=== PATIENT | male | born 2000 ===

== ENCOUNTER 2024-06-14 05:47 | Emergency (ER) | payer OTHER, SELFPAY ==
[2024-06-14 05:51] VITALS: BP 142/87; PULSE 68; RESP 22; TEMP 36.6; O2SAT 98; BMI 21.5
--- NOTE | 2024-06-14 06:01 | ED_ITS ---
HPI - Abdominal Pain General Time Seen by Provider: 06:02 Date Seen: 06/14/24 Chief Complaint: Abdominal Pain Stated Complaint: Stomach issues Time Seen by Provider: 06/14/24 06:01 Source: patient Mode of arrival: ambulatory Limitations: no limitations History of Present Illness HPI narrative: 24-year-old male who comes in today with abrupt onset left lower quadrant pain started about 45 minutes prior to arrival via nausea vomiting. Did have some blood in the urine. No diarrhea constipation, did not take any medication for this. Related Data Home Medications ?Medication ?Instructions ?Recorded ?Confirmed No Known Home Medications 06/14/24 06/14/24 Allergies Allergy/AdvReac Type Severity Reaction Status Date / Time Penicillins Allergy Verified 06/14/24 05:54 PFSH PFSH Social History Non-prescribed substance use: denies use Exam Narrative: Exam Narrative: General: Well-developed and well-nourished, appears uncomfortable Head: Atraumatic and normocephalic Eyes: Pupils are equal reactive, extraocular motions intact, conjunctiva clear ENT: External nose and ears are normal, posterior pharynx without erythema or exudate Neck: No midline cervical tenderness, full spontaneous range of motion the neck, trachea midline, no adenopathy Heart: Regular rate and rhythm no murmurs or thrills Lungs: Clear to auscultation bilaterally without wheezes or crackles Abdomen: Soft, mild left lower quadrant tenderness, mild left CVA tenderness Musculoskeletal: No tenderness, deformity, or edema Neurologic: Awake, alert, and oriented x3, no gross focal neurologic deficits, cranial nerves intact as tested Psych: Mood and affect are appropriate Skin: No rashes Const: Vital Signs, click to edit/add: Vital Signs - 24 hr 06/14/24 05:51 Temperature 97.8 F Pulse Rate [Pulse Oximeter] 68 Respiratory Rate 22 Blood Pressure [Ri ght Upper Arm] 142/87 H Pulse Oximetry 98 Oxygen Delivery Me thod Room Air Course Course ED Course: Reviewed prior clinic visit from December 2022 which was evaluation at the [facility] department right forearm injury and right wrist tendinitis, treated conservatively with immobilization, ibuprofen. Patient presents today with left lower quadrant pain radiating to the groin starting just prior to arrival. Hematuria as well. On exam here appears quite uncomfortable, finally stable, mild CVA tenderness to percussion, left lower quadrant tenderness. Symptoms are most consistent consent own, consider also testicular torsion although patient does not have any testicular pain, obstruction possible less likely. Toradol and Zofran ordered for symptom management, labs and CT scan are performed. Reevaluation(s) Time of Reevaluation #1: 06:27 Reevaluation #1: Labs independently interpreted morning me with normal CBC, normal basic panel. CT scan independently interpreted by me demonstrates 3-4 mm distal ureteral stone with minimal hydronephrosis Time of Reevaluation #2: 06:57 Reevaluation #2: Patient rechecked, appears comfortable and stable for discharge. We discussed etiology kidney stones and preventive measures, questions answered. Vital Signs Vital signs: Initial Vital Signs Temperature 97.8 F 06/14/24 05:51 Temperature Source Temporal Artery Scan 06/14/24 05:51 Pulse Rate 68 06/14/24 05:51 Respiratory Rate 22 06/14/24 05:51 Blood Pressure 142/87 H 06/14/24 05:51 Blood Pressure Mean 105 06/14/24 05:51 Blood Pressure Position Sitting 06/14/24 05:51 Pulse Oximetry 98 06/14/24 05:51 Oxygen Delivery Method Room Air 06/14/24 05:51 Vital Signs Temperature 97.8 F 06/14/24 05:51 Pulse Rate 68 06/14/24 05:51 Respiratory Rate 22 06/14/24 05:51 Blood Pressure 142/87 H 06/14/24 05:51 Pulse Oximetry 98 06/14/24 05:51 Oxygen Delivery Method Room Air 06/14/24 05:51 Temperature 97.8 F 06/14/24 05:51 Pulse Rate 68 06/14/24 05:51 Respiratory Rate 22 06/14/24 05:51 Blood Pressure 142/87 H 06/14/24 05:51 Pulse Oximetry 98 06/14/24 05:51 Oxygen Delivery Method Room Air 06/14/24 05:51 Medications Administered Medications: Discontinued Medications Generic Name Dose Route Start Last Admin Trade Name Freq PRN Reason Stop Dose Admin Ketorolac Tromethamine 15 mg 06/14/24 06:07 06/14/24 06:13 Ketorolac 15 Mg/Ml Inj IVP 06/14/24 06:08 15 mg ONCE ONE Administration Ondansetron HCl 4 mg 06/14/24 06:07 06/14/24 06:13 Ondansetron 2 Mg/Ml Inj IVP 06/14/24 06:08 4 mg ONCE ONE Administration MDM - Abdominal Pain Lab Data Labs: Lab Results 06/14/24 06/14/24 Range/Units 05:58 06:20 WBC 7.78 (4.50-11.00) K/uL RBC 5.34 (4.30-5.90) m/uL Hgb 16.4 (13.5-17.5) gm/dL Hct 44.7 (37.0-53.0) % MCV 84 (80-100) fL MCH 31 (26-34) pg MCHC 37 H (32-36) gm/dL RDW Coeff of Tommy 13.0 (11.5-15.5) % Plt Count 276 (140-440) K/uL Neut % (Auto) 41.0 L (42.0-72.0) % Lymph % (Auto) 48.8 H (20-44) % [place] % (Auto) 7.6 (0.0-11.0) % Eos % (Auto) 1.5 (0.0-7.0) % Baso % (Auto) 0.3 (0.0-3.0) % Neut # (Auto) 3.20 (1.7-7.0) K/uL Lymph # (Auto) 3.80 H (0.90-2.90) K/uL [place] # (Auto) 0.60 (0.00-0.90) K/UL Eos # (Auto) 0.12 (0.00-0.50) K/uL Baso # (Auto) 0.02 (0.00-0.30) K/uL Abs Immat Gran (auto) 0.06 (0.00-0.30) K/uL Imm/Tot Granulo (auto) 0.8 % Sodium 140 (135-149) mmol/L Potassium 4.0 (3.6-5.1) mmol/L Chloride 103 (96-114) mmol/L Carbon Dioxide 25 (20-32) mmol/L Anion Gap 12 (7-15) mEq/L BUN 18 (5-24) mg/dL Creatinine 1.2 (0.5-1.5) mg/dL Estimated Creat Clear 90.56 Estimated GFR 86 ml/min Glucose 119 H (60-115) mg/dL Calcium 9.5 (8.4-10.6) mg/dL Urine Color Brown A (Yellow) Urine Appearance Cloudy A (Clear) Urine pH 5.5 (5.0-8.5) Ur Specific [place] >= 1.030 (1.000-1.030) Urine Protein 2+ A (Negative) Urine Glucose (UA) Negative (Negative) Urine Ketones Negative (Negative) Urine Blood 3+ A (Negative) Urine Nitrite Negative (Negative) Urine Bilirubin 1+ A (Negative) Urine Urobilinogen 0.2 (0.2-1.0) Ur Leukocyte Esterase Negative (Negative) Urine RBC 50-100 A (0-2) Urine WBC 0-2 (0-5) Ur Squamous Epith Cells Few (None-Few) Calcium Oxalate Crystal Few A (None) Urine Bacteria None (None) Urine Mucus Moderate A (None) Urine Yeast Moderate A (None) Discharge Plan Discharge Clinical Impression: Left ureteral stone Patient Disposition: Home, Self-Care Condition: Stable Instructions: Ureteral Stones (ED) Additional Instructions: Strain urine. If you catch the stone, take it to your clinic to have them analyze it. Follow-up with primary care Tylenol and ibuprofen alternating every 3 hours for baseline pain management. Oxycodone as needed for more severe pain. If your pain is not controlled medications at home, return to the emergency department. If you are able to go to [facility], or [facility], they have urologists that can move your stone if needed. Activity Level: Activity as Tolerated Discharge Diet: Regular Prescriptions: No Action No Known Home Medications Follow Up/Referrals: Provider,Not a Local [Primary Care Provider] - Stand Alone Forms: [employer] Info Instructions
--- NOTE | 2024-06-14 06:08 | CRLHL7_ITS ---
For Patients: As a result of the Century Cures Act, medical imaging exams and procedure reports are released immediately into your electronic medical record. You may view this report before your referring provider. If you have questions, please contact your health care provider. INDICATION: Left lower quadrant abdominal pain COMPARISON: None TECHNIQUE: CT examination of the abdomen and pelvis was performed without intravenous contrast. Thin section axial images were obtained from the lung bases through the pubic symphysis. Oral contrast was not administered. Please note that all CT scans at this facility use dose modulation, iterative reconstruction, and/or weight-based dosing when appropriate to reduce radiation dose to as low as reasonably achievable. FINDINGS: LUNG BASES: The lung bases as visualized appear normal.The heart size is normal at the lung bases. LIVER/BILIARY SYSTEM:The liver is normal in size and configuration given the lack of intravenous contrast. There is no visible focal mass and there is no intra- or extra hepatic biliary ductal dilatation.The gall bladder appears normal. ADRENALS: Normal non-contrast appearance KIDNEYS, URETERS and BLADDER:Tiny intrarenal calculi bilaterally. Mild left hydronephrosis and left hydroureter due to a 3 millimeter calculus at the left ureterovesical junction. SPLEEN:Normal non-contrast appearance. PANCREAS: Normal non-contrast appearance. RETROPERITONEUM and MESENTERY: There is no mass, adenopathy or aortic aneurysm. GASTROINTESTINAL SYSTEM: There is no evidence of diverticulitis, colitis, mechanical obstruction, or appendicitis. The small bowel as visualized appears normal. PELVIS: No mass, adenopathy or free fluid. OSSEOUS STRUCTURES and ABDOMINAL WALL: There is an age-appropriate appearance of the osseous structures.No significant abdominal wall defect. OTHER: No free fluid or free air. IMPRESSION: Mild left hydronephrosis and left hydroureter due to a 3 millimeter calcified calculus at the left ureterovesical junction. Tiny intrarenal calculi bilaterally. Please note that all CT scans at this facility use dose modulation, iterative reconstruction, and/or weight-based dosing when appropriate to reduce radiation dose to as low as reasonably achievable. Dictated by Tor Brewster MD @ 06/14/2024 6:28:43 AM (Electronically Signed)
[2024-06-14] MEDS: KETOROLAC 15 MG/ML inj IVP (06:13)
[2024-06-14] MEDS: ONDANSETRON 2 MG/ML inj 4 MG IVP (06:13)
[2024-06-14 06:16] LABS: Basophils Absolute Auto 0.02 K/uL (0.00-0.30); Basophils Percent Auto 0.3 % (0.0-3.0); Eosinophils Absolute Auto 0.12 K/uL (0.00-0.50); Eosinophils Percent Auto 1.5 % (0.0-7.0); Hematocrit 44.7 % (37.0-53.0); Hemoglobin* 16.4 gm/dL (13.5-17.5); Immature Granulocytes Abs Auto 0.06 K/uL (0.00-0.30); Immature Granulocytes Pct Auto 0.8 %; Lymphocytes Percent Auto 48.8 % (20-44); Mean Corpuscular HGB Conc 37 gm/dL (32-36); Mean Corpuscular Hemoglobin 31 pg (26-34); Mean Corpuscular Volume 84 fL (80-100); Monocytes Percent Auto 7.6 % (0.0-11.0); Platelet Count* 276 K/uL (140-440); Red Blood Count 5.34 m/uL (4.30-5.90); White Blood Count* 7.78 K/uL (4.50-11.00)
[2024-06-14 06:19] LABS: Slide Review Reflex No
[2024-06-14 06:21] LABS: Chloride* 103 mmol/L (96-114)
[2024-06-14 06:22] LABS: Sodium* 140 mmol/L (135-149)
[2024-06-14 06:25] LABS: Anion Gap 12 mEq/L (7-15); Blood Urea Nitrogen* 18 mg/dL (5-24); Calcium* 9.5 mg/dL (8.4-10.6); Carbon Dioxide* 25 mmol/L (20-32); Creatinine* 1.2 mg/dL (0.5-1.5); Est. Creatinine Clearance* 90.56; Estimated Glomerular Filt Rate 86 ml/min; Glucose* 119 mg/dL (60-115)
[2024-06-14 06:36] LABS: Appearance Urine Cloudy (Clear); Bilirubin Urine 1+ (Negative); Blood Urine 3+ (Negative); Color Urine Brown (Yellow); Glucose Urine Negative (Negative); Ketones Urine Negative (Negative); Leukocyte Esterase Urine Negative (Negative); Nitrite Urine Negative (Negative); Protein Urine 2+ (Negative); Specific Gravity Urine >= 1.030 (1.000-1.030); Urobilinogen Urine 0.2 (0.2-1.0); pH Urine 5.5 (5.0-8.5)
[2024-06-14 06:48] LABS: Calcium Oxalate Crystals Urine Few; RBC Urine 50-100 (0-2); Squamous Epithelial Cell Urine Few (None-Few); WBC Urine 0-2 (0-5)
[2024-06-14 06:49] LABS: Mucus Urine Moderate
--- OUTSIDE RECORDS SUMMARY | 2024-06-14 06:54 | XMS_ITS | Continuity of Care Document ---
Author Organization [facility] Address [address] [place] [address] Phone Care Team Providers Care Pharmacy Aide Name Role Phone Livier Hutton MD Unavailable Unavailable Allergies, Adverse Reactions, Alerts Substance Reaction Status Criticality Penicillins Active No Information Procedures Procedure Date RADEX WRST COMPL MINIMUM 3 VIEWS 2019 RADEX WRST COMPL MINIMUM 3 VIEWS 2019 OFFICE/OUTPATIENT VISIT NEW Advance Directives Directive Yes / No Effective Date File Name Other Directive No N/A N/A WARNING:The information contained in this section is historical and is provided for information only and does not constitute a legal document or any assurance that the information is still accurate. Please verify the information with the nino of the legal document before using it for clinical purposes. Encounters Encounter Description Practice Location Reason(s) For Visit Diagnoses Date Provider Providers Copied on Encounter OFFICE/OUTPAT IENT VISIT NEW [facility] , [address], [place], [address], tel:[phone] [facility] Mirtha Right wrist painLeft wrist painGanglio n, left wristDe Quervain's disease (radial styloid tenosynovit is) Brennen Maier. [address], [place], [place], [id number]. tel:[phone] Referring Provider: [place] Qu[place], [address], [place], [address] . tel:[phone] Family History Family Member Type Diagnosis Age At Onset Mother Problem Alive and well Payers Payer name Insurance type Covered democrat ID Authoriza tion(s) UHC Choice/Choice Plus E2 [id number] Social History Type Description Quantity Date Captured Comments Alcohol Use Details No Caffeine Use Details Unknown Tobacco Use Status Current non-smoker 20 Smoking Status Never smoker Non-Smoking Tobacco Use Details : No Details Available : No Details Available Sex Male Vital Signs Date / Time: Height Weight BMI Pulse Rate Blood Pressure Temperature Respiratory Rate Body Surface Area Head Circumference Head Circ. Percentile Wt./Jourdan. Percentile BMI percentile Pulse Ox Inhaled Ox 12:35 PM 70.00 in 72.575 kg (160.00 lbs) 22.9 6 kg/m eter (2) Chief Complaint And Reason For Visit No Information Reason For Referral Reason For Referral No Information Plan Of Treatment Date Type Action Status Referral Ordered: RADEX WRST COMPL MINIMUM 3 VIEWS LT ordered Referral Ordered: RADEX WRST COMPL MINIMUM 3 VIEWS RT ordered History Of Present Illness Encounter Date Complaint History Of Prese nt Illness No Information Functional Status Date Functional Assessmen t Pain Score 6/10 Instructions Date Instruction Additional Infor mation No Information Assessments Type Assessment Date assessment Right wrist pain assessment Left wrist pain assessment Ganglion, left wrist assessment De Quervain's disease (radial st yloid tenosynovitis) Patient Care Teams Name Effective Dates (start - stop) Status Members No Information
--- OUTSIDE RECORDS SUMMARY | 2024-06-14 06:54 | XMS_ITS | Clinical Summary ---
Author Organization [facility] Address [address] [facility] [place] [address] Care Team Providers Care Sign Language Interpreter Name Role Phone Mane Henry MD Primary Care Provider [phone] Allergies Active Allergy Reactions Criticality Noted Date Comments Penicillins Other (See Comments) 11/15/2015 Medications No known medications Active Problems Problem Noted Date Diagnosed Date History of concussion 08/25/2020 Overview (08/25/2020): 2011: fall on ice. Recovery within 1 month 2015: head to glass (check). Recovery within 3 weeks. No other concussion or suspected concussion No chronic concussive symptoms. Immunizations Immunization Administration Dates Next Due (ADACEL/BOOSTRIX)(10 YR UP) TDAP VACCINE, 0.5ML, IM 07/30/2020 (HAVRIX/VAQTA)(12 MO-18 YRS) HEPATITIS A VACCINE 0.5 ML PED/ADOL 2 DOSE, IM 06/30/2011 (SPIKEVAX) (12 YRS UP PRIMAR Y SERIES) COVID-19 VACCINE - MRNA-1273(PF) 100 MCG/0.5 ML IM SUSP 08/15/2020 Family History Relation Name Status Comments Father Alive Mother Alive Social History Tobacco Use Types Packs/Day Years Used Date Smoking Tobacco: Never Smokeless Tobacco: Never Alcohol Use Standard Drinks/Week Comments Yes 0 (1 standard drink = 0.6 oz pur e alcohol) Sex and Gender Information Value Date Recorded Sex Assigned at Not on file Legal Sex Male 9:35 PM CDT Gender Identity Not on file Sexual Orientation Not on file Last Filed Vital Signs Vital Sign Reading Time Taken Comments Blood Pressure 120/80 08/25/2020 11:04 AM CDT Pulse 85 08/25/2020 11:04 AM CDT Temperature - - Respiratory Rate - - Oxygen Saturation 98% 08/25/2020 11:04 AM CDT Inhaled Oxygen Concentration - - Weight 72.6 kg (160 lb) 08/25/2020 11:04 AM CDT Height 172.7 cm (5' 8) 08/25/2020 11:04 AM CDT Body Mass Index 24.33 08/25/2020 11:04 AM CDT Plan of Treatment Health Maintenance Due Date Last Done Comments HPV VACCINES (1 - Male 3-dose series) 2014 HEPATITIS B VACCINES (1 of 3 - 19+ 3-dose series) 02/07 INFLUENZA VACCINE (#1) 2023 COVID-19 Vaccine (2 - 2023- season) 10/09/202310/2020 Preventative Visit- Commercial 02/08/2024 08/25/2020 DTAP/TDAP/TD VACCINES (2 - Td or Tdap) 07/30/2030 Insurance Care Teams Sign Language Interpreter Relationship Specialty Start Date End Date Mane Henry MD [address] [place] [id number] PCP - General Family Practice 08/25/20
--- OUTSIDE RECORDS SUMMARY | 2024-06-14 06:54 | XMS_ITS | Clinical Summary ---
Author Organization [facility] Address [address] [place] [address] Care Team Providers Care Credit Adjuster Name Role Phone Unavailable Primary Care Provider Unavailabl e Source Comments [facility],non-owned Affiliates and Associated Physician Practices is amultiple site organization consisting of ambulatory clinics and hospital sitesin [place], [place], [place] and [place]. This disclosure is being madepursuant to the Care Everywhere program and may not contain all information available regarding this patient. Last updated 17.[facility] Allergies Active Allergy Reactions Criticality Noted Date Comments Penicillins 11/15/2015 Medications * Be aware that medications may not be up to date on this document. Alwaysverify current medications with the patient. ibuprofen (MOTRIN) 800 MG tablet Take 1 (one) tablet by mouth every 6 hours as needed for Pain 30 tablet 07/30/2020 Active Active Problems No known active problems Immunizations Immunization Administration Dates Next Due TDAP (7yrs+) 07/30/2020 Social History Tobacco Use Types Packs/Day Years Used Date Smoking Tobacco: Never Smokeless Tobacco: Never Alcohol Use Standard Drinks/Week Comments Not Asked 0 (1 standard drink = 0.6 oz pur e alcohol) Sex and Gender Information Value Date Recorded Sex Assigned at Not on file Legal Sex Male 5:25 AM DIRECTOR OF VOCATIONAL TRAINING Gender Identity Not on file Sexual Orientation Not on file Last Filed Vital Signs Vital Sign Reading Time Taken Comments Blood Pressure 132/85 07/30/2020 1:01 PM CDT Pulse 85 07/30/2020 1:01 PM CDT Temperature 35.8 C (96.4 F) 07/30/2020 11:49 AM CDT Respiratory Rate 16 07/30/2020 1:01 PM CDT Oxygen Saturation 100% 07/30/2020 1:01 PM CDT Inhaled Oxygen Concentration - - Weight 72.6 kg (160 lb) 07/30/2020 11:49 AM CDT Height 177.8 cm (5' 10) 07/30/2020 11:49 AM CDT Body Mass Index 22.96 07/30/2020 11:49 AM CDT Plan of Treatment Health Maintenance Due Date Last Done Comments HIV SCREENING 2014 HPV VACCINE (1 - Male 3-dose series) 2014 HEPATITIS C SCREENING 02/12/2017 HEPATITIS B VACCINE (1 of 3 - 19+ 3-dose series) 2018 COVID-19 VACCINE (1 - 2023-2 5 season) 2023 DEPRESSION SCREENING 02/08/2024 INFLUENZA VACCINE (Season Ended) 2024 DTAP/TDAP/TD VACCINES (2 - T d or Tdap) 07/30/2030 07/30/2020 ZOSTER VACCINE (1 of 2) 2049 HIB VACCINE Aged Out No longer eligi ble based on patient's age to complete this topic MENINGOCOCCAL (Group B) VACC INE SHARED DECISION-MAKING Aged Out No longer eligibl e based on patient's age to complete this topic MENINGOCOCCAL GROUPS A/C/Y/W VACCINE Aged Out No longer eligible b ased on patient's age to complete this topic PNEUMOCOCCAL VACCINE Aged Out No long er eligible based on patient's age to complete this topic Insurance [facility] AET[employer] PAYOR GENERIC [facility]
--- OUTSIDE RECORDS SUMMARY | 2024-06-14 06:54 | XMS_ITS | Clinical Summary ---
Author Organization [facility] Address [address] [place] [address] Care Team Providers Care Waterway Traffic Checker Name Role Phone Pcp, No Primary Care Provider Unavailabl e Allergies Active Allergy Reactions Criticality Noted Date Comments Penicillins Hives 01/05/2021 Medications ibuprofen (ADVIL; MOTRIN) 800 mg tablet Take 800 mg by mouth every 6 hours if needed. 07/30/2020 Active Active Problems No known active problems Social History Tobacco Use Types Packs/Day Years Used Date Smoking Tobacco: Never Assessed Sex and Gender Information Value Date Recorded Sex Assigned at Not on file Legal Sex Male 10:28 AM CDT Gender Identity Not on file Sexual Orientation Not on file Obstetrics History Last Filed Vital Signs Vital Sign Reading Time Taken Comments Blood Pressure 132/70 05/11/2021 2:35 PM CDT Pulse 79 05/11/2021 2:35 PM CDT Temperature 37.1 C (98.7 F) 05/11/2021 2:35 PM CDT Respiratory Rate 14 05/11/2021 2:35 PM CDT Oxygen Saturation 99% 05/11/2021 2:35 PM CDT Inhaled Oxygen Concentration - - Weight 73 kg (161 lb) 05/11/2021 2:35 PM CDT Height - - Body Mass Index - - Plan of Treatment Health Maintenance Due Date Last Done Comments Tdap 2010 Depression screening for age 12+ 2011 HIV for age 15-65 2014 HPV series for age 9-26 (1 - Male 3-dose series) 2014 BMI (ht and wt on same day) for age 18+ 2017 Hepatitis C screening for ag e 18-79 2017 Tetanus booster 2019 COVID-19 vaccine series (2023- season) 2023 Influenza Vaccine (Season Ended) 2024 Pneumococcal series for age 6-49 Aged Out No longer eligible based on patient's age to complete this topic Insurance [employer] Care Teams Waterway Traffic Checker Relationship Specialty Start Date End Date Pcp, No . PCP - General 10/15/20
== END 2024-06-14 07:08 | disposition home or self-care (01) ==
PROVIDERS: Emergency Provider Family Medicine
DX: N20.1 Calculus of ureter (principal)
CPT/HCPCS: 36415; 74176; 80048; 81001; 85025; 96374; 96375; 99284; 99285; J1885; J2405